=== PATIENT | male | born 1945 | race Caucasian/White ===

== ENCOUNTER 2025-01-15 09:23 | Emergency (ER) | payer MEDICARE, OTHER ==
[2025-01-15] MEDS ORDERED: Fluorescein Opthalmic Strip ONE (10:18)
[2025-01-15] MEDS ORDERED: Proparacaine 0.5% Opth 15 ML BOT ONE (10:43)
== END 2025-01-15 11:38 | disposition home or self-care (01) ==
LOC: ERS 09:23
DX: S05.02XA Injury of conjunctiva and corneal abrasion without foreign body, left eye, initial encounter (principal); H10.9 Unspecified conjunctivitis; I25.10 Atherosclerotic heart disease of native coronary artery without angina pectoris; I10 Essential (primary) hypertension; Z95.5 Presence of coronary angioplasty implant and graft; Z87.891 Personal history of nicotine dependence; Z79.899 Other long term (current) drug therapy; Z79.82 Long term (current) use of aspirin; X58.XXXA Exposure to other specified factors, initial encounter
CPT/HCPCS: 99283